=== PATIENT | female | born 1990 | race African-American/Black ===

== ENCOUNTER → 2020-01-01 | Outpatient (CLI) | payer OTHER ==
[~2020-01-01] MED LIST: APAP W/CODEINE1 TA2 PO; ERYTHROMYCIN E3.5 G2 OPHTHALMIC; GUAIFEN-CODEINE10 ML PO; KEFLEX500 M1 PO; MACROBID 100 M100 MG PO; NOHOMEMEDICATIONS; ONDANSETRON HCL4 M2 PO; PRENATAL PO; TESSALON PERLE100 MG PO; TORADOL 10 MG T10 MG PO; ZOFRAN ODT4 MG PO
== END ==
LOC: M.LAB 22:49
PROVIDERS: ATTEND Obstetrics & Gynecology
DX: O02.1 Missed abortion (principal)

== ENCOUNTER 2020-01-10 08:24 | Emergency (ER) | payer OTHER ==
[~2020-01-10] VITALS: Ht 160 cm; Wt 56.7 kg
[2020-01-10 09:23] VITALS: BP 92/68
== END 2020-01-10 09:24 | disposition home or self-care (01) ==
LOC: M.ERS 08:24
DX: R51.9 Headache, unspecified (principal); Z20.828 Contact with and (suspected) exposure to other viral communicable diseases

== ENCOUNTER → 2020-01-10 | Outpatient (CLI) | payer OTHER | LOC: M.LAB 08:02 | PROVIDERS: ATTEND Obstetrics & Gynecology | DX: O20.0 Threatened abortion (principal) ==

== ENCOUNTER → 2020-01-18 | Outpatient (CLI) | payer OTHER | LOC: M.LAB 20:32 | DX: O20.0 Threatened abortion (principal); Z3A.00 Weeks of gestation of pregnancy not specified ==

== ENCOUNTER → 2020-01-26 | Outpatient (CLI) | payer OTHER | LOC: M.LAB 02:13 | PROVIDERS: ATTEND Obstetrics & Gynecology | DX: O02.1 Missed abortion (principal); Z3A.00 Weeks of gestation of pregnancy not specified ==